=== PATIENT | female | born 1990 | race Caucasian/White ===

== ENCOUNTER 2019-05-09 10:18 | Inpatient (IN) ==
[2019-05-09] MEDS ORDERED: Lidocaine 1% 20 ML MDV INFILT PRN (10:28)
[2019-05-09] MEDS ORDERED: Naloxone 0.4 MG/ML INJ IVP PRN ×2 (10:28→19:43)
[2019-05-09] MEDS ORDERED: Famotidine 20 MG/2 ML VIAL IVP PRN (10:28)
[2019-05-09] MEDS ORDERED: Metoclopramide 10 MG/2 ML VIAL IVP PRN ×2 (10:28→19:43)
[2019-05-09] MEDS ORDERED: *HR* FentaNYL (PF) 100 MCG/2 ML VIAL IVP PRN (10:28)
[2019-05-09] MEDS ORDERED: Oxytocin 20 units/ LR 1000 mL 20 UNIT/1,000 ML BAG IVC SCH ×2 (10:30→19:43)
[2019-05-09] MEDS ORDERED: Ringers Solution, Lactated 1,000 ML IVC SCH (10:30)
[2019-05-09] MEDS ORDERED: miSOPROStoL 25 MCG TABLET PO PRN (10:57)
[2019-05-09 11:13] LABS: Basophils % 0.3 %; Eosinophils # 0.2 K/mcL (0.0-0.6); Eosinophils % 1.2 %; Hematocrit 40.1 % (35.3-44.9); Hemoglobin 13.7 g/dL (11.5-15.4); Immature Granulocytes % 0.4 % (0-4); Lymphocytes # 2.6 K/mcL (0.6-4.6); Lymphocytes % 19.6 %; Mean Corpuscular HGB Conc 34.2 g/dL (31.6-35.5); Mean Corpuscular Hemoglobin 32.7 pg (28.0-33.3); Mean Corpuscular Volume 95.7 fL (83.0-100.0); Monocytes # 0.7 K/mcL (0.0-1.3); Monocytes % 5.1 %; Neutrophils # 9.7 K/mcL (1.6-8.9); Platelet Count 290 K/mcL (140-400); Red Blood Count 4.19 M/mcL (3.82-4.97); Red Cell Distribution Width 11.9 % (11.5-14.5); Segmented Neutrophils % 73.4 %; White Blood Count 13.2 K/mcL (4.3-11.1)
[2019-05-09 11:33] LABS: Amphetamine Screen,Urine Negative ng/mL (Cutoff=1000); Barbiturate Screen,Urine Negative ng/mL (Cutoff=200); Benzodiazepines Screen,Urine Negative ng/mL (Cutoff=200); Cannabinoid Screen,Urine Positive ng/mL (Cutoff = 50); Cocaine Screen,Urine Negative ng/mL (Cutoff= 300); Opiate Screen,Urine Negative ng/mL (Cutoff=300); Phencyclidine Screen,Urine Negative ng/mL (Cutoff=25)
[2019-05-09] MEDS ORDERED: EPHEDrine 50 MG/ML VIAL IVP PRN (12:17)
[2019-05-09] MEDS ORDERED: Epidural Premix (fent/bupiv) 110 ML EP SCH (12:30)
[2019-05-09] MEDS ORDERED: EPINEPHrine 1 MG/ML VIAL ONE (12:50)
[2019-05-09] MEDS ORDERED: *HR* Phenylephrine 10 MG/ML VIAL ONE (16:04)
[2019-05-09] MEDS ORDERED: 0.9 % Sodium Chloride 250 ML ONE (16:04)
[2019-05-09] MEDS ORDERED: Ondansetron 4 MG/2 ML VIAL ONE (16:14)
[2019-05-09] MEDS ORDERED: Dexamethasone 4 MG/ML VIAL ONE (16:14)
[2019-05-09] MEDS ORDERED: Lidocaine/EPI 1:200k 2% PF 20 ML VIAL ONE (16:14)
[2019-05-09] MEDS ORDERED: Simethicone 80 MG TAB.CHEW PO PRN (19:43)
[2019-05-09] MEDS ORDERED: Sennosides 8.6 MG TABLET PO PRN (19:43)
[2019-05-09] MEDS ORDERED: Ondansetron 4 MG/2 ML VIAL IVP PRN (19:43)
[2019-05-09] MEDS ORDERED: Ringers Solution, Lactated 1,000 ML ONE (20:02)
[2019-05-09] MEDS: cephALEXin 500 MG CAPSULE PO SCH (20:07)
[2019-05-09] MEDS: Ibuprofen 600 MG TABLET PO PRN (20:08)
[2019-05-09] MEDS: metroNIDAZOLE 500 MG TABLET PO SCH (20:08)
[2019-05-09] MEDS: Acetaminophen 325 MG TABLET PO PRN (23:35)
[2019-05-10] MEDS: Ibuprofen 600 MG TABLET PO PRN ×4 (02:57→20:52)
[2019-05-10 04:11] LABS: Basophils % 0.2 %; Eosinophils % 0.1 %; Immature Granulocytes % 0.5 % (0-4); Lymphocytes # 2.1 K/mcL (0.6-4.6); Lymphocytes % 13.6 %; Mean Corpuscular HGB Conc 34.4 g/dL (31.6-35.5); Mean Corpuscular Hemoglobin 33.6 pg (28.0-33.3); Mean Corpuscular Volume 97.7 fL (83.0-100.0); Mean Platelet Volume 10.9 fL (9.4-12.4); Monocytes # 0.9 K/mcL (0.0-1.3); Monocytes % 5.6 %; Neutrophils # 12.4 K/mcL (1.6-8.9); Platelet Count 259 K/mcL (140-400); Red Blood Count 3.48 M/mcL (3.82-4.97); Red Cell Distribution Width 11.9 % (11.5-14.5); White Blood Count 15.5 K/mcL (4.3-11.1)
[2019-05-10 04:12] LABS: Hemoglobin 11.7 g/dL (11.5-15.4)
[2019-05-10] MEDS: Acetaminophen 325 MG TABLET PO PRN ×2 (05:07→18:07)
[2019-05-10] MEDS: Prenatal Vit/FA 1 EACH TABLET PO SCH (09:02)
[2019-05-10] MEDS: cephALEXin 500 MG CAPSULE PO SCH ×3 (09:03→20:52)
[2019-05-10] MEDS: metroNIDAZOLE 500 MG TABLET PO SCH ×3 (09:03→20:52)
[2019-05-10] MEDS: *HR* OxyCODONE/APAP 5/325 TABLET PO PRN (09:50)
[2019-05-11] MEDS: Acetaminophen 325 MG TABLET PO PRN ×2 (00:20→08:33)
[2019-05-11] MEDS: Ibuprofen 600 MG TABLET PO PRN ×2 (04:02→11:40)
[2019-05-11 07:54] VITALS: BP 127/83
[2019-05-11] MEDS: Prenatal Vit/FA 1 EACH TABLET PO SCH (08:33)
[2019-05-11] MEDS: metroNIDAZOLE 500 MG TABLET PO SCH (08:33)
[2019-05-11] MEDS: cephALEXin 500 MG CAPSULE PO SCH (08:33)
[2019-05-11] MEDS: *HR* OxyCODONE/APAP 5/325 TABLET PO PRN (12:36)
== END 2019-05-11 12:45 | disposition home or self-care (01) | DRG 540 ==
LOC: 1NENULAB → 1NENUOBS 19:43
PROVIDERS: ADMIT Obstetrics & Gynecology; ATTEND Obstetrics & Gynecology